=== PATIENT | male | born 1975 | race Caucasian/White ===

== ENCOUNTER 2016-05-31 11:19 | Outpatient (CLI) | payer BC | END 2016-05-31 18:07 | disposition home or self-care (01) | LOC: SRD 11:19 | PROVIDERS: ATTEND Family Medicine | DX: R51 Headache (principal); R20.9 Unspecified disturbances of skin sensation; R42 Dizziness and giddiness | CPT/HCPCS: 70450-TC ==

== ENCOUNTER 2017-06-23 07:56 | Outpatient (CLI) | payer BC ==
[2017-06-23] MEDS ORDERED: DIATR MEGLU/DIATRIZ SOD 30 ML SOLUTION PO ONE (08:09)
[2017-06-23] MEDS ORDERED: IOHEXOL 100 ML IV ONE (11:01)
== END 2017-06-23 19:53 | disposition home or self-care (01) ==
LOC: SCT 07:56
PROVIDERS: ATTEND Family Medicine
DX: K44.9 Diaphragmatic hernia without obstruction or gangrene (principal); I70.8 Atherosclerosis of other arteries
CPT/HCPCS: 74177; Q9964; Q9967